=== PATIENT | female | born 1975 | race Caucasian/White ===

== ENCOUNTER 2024-07-10 14:55 | Inpatient (IN) | payer BC, OTHER ==
[2024-07-10 15:21] LABS: HEMATOCRIT 44.1 % (37.0-47.0); HEMOGLOBIN 14.3 g/dL (12.0-16.0); MEAN CORPUSCULAR HEMOGLOBIN 31.4 pg (27.0-34.0); MEAN CORPUSCULAR HGB CONC 32.4 g/dL (33.0-35.0); MEAN CORPUSCULAR VOLUME 96.7 fL (80-100); PLATELET COUNT,PLT 418 10^3/uL (150-450); RED BLOOD CELL COUNT 4.56 10^6/uL (4.2-5.4); WHITE BLOOD CELL COUNT,WBC 12.2 10^3/uL (5.0-10.0)
[2024-07-10 15:24] LABS: BASOPHILS PERCENT AUTO 0.3 % (0.0-1.0); EOSINOPHILS PERCENT AUTO 0.2 % (1.0-3.0); LYMPHOCYTES PERCENT AUTO 11.9 % (20.5-50.1); MONOCYTES PERCENT AUTO 5.6 % (2-8)
[2024-07-10] MEDS: Lactated Ringers 1,000 ML IV SCH ×2 (15:28→16:51)
[2024-07-10] MEDS: cefTRIAXone 2 GM Vial IV ONE (15:28)
[2024-07-10] MEDS: Azithromycin 500 MG in Sodium Chloride 0.9% 250 ML IV ONE (15:28)
[2024-07-10 15:35] LABS: A/G RATIO 0.56; ALBUMIN 2.9 g/dL (3.4-5.0); ANION GAP 15.1 mEq/L (7-13); BILIRUBIN TOTAL 0.7 mg/dL (0.2-1.0); BUN/CREATININE RATIO 21.3 (No establ ref range); CALCIUM 9.6 mg/dL (8.5-10.1); CREATININE 0.89 mg/dL (0.55-1.02); EST CRCL DRUG DOSING (CG) 66.03 mL/min; POTASSIUM,K 3.1 mmol/L (3.5-5.1); PROTEIN TOTAL,TP 8.1 g/dL (6.4-8.2)
[2024-07-10 15:38] LABS: LACTIC ACID 2.3 mmol/L (0.4-2.0)
[2024-07-10] MEDS: Albuterol/Ipratropium 3.0-0.5 MG/3 ML Neb Soln NEB ONE ×2 (15:43→16:53)
[2024-07-10 15:45] LABS: BAND PERCENT MAN 7 %; LYMPHOCYTES PERCENT MAN 16 % (20-50); MONOCYTES PERCENT MAN 3 % (2-8); SEG NEUTROPHILS PERCENT MAN 74 % (42-75)
[2024-07-10 16:43] LABS: APPEARANCE,URINE SLIGHTLY CLOUDY (CLEAR); BILIRUBIN,URINE SMALL (NEGATIVE); COLOR,URINE YELLOW (YELLOW); GLUCOSE,URINE NEGATIVE (NEGATIVE); KETONES,URINE TRACE (NEGATIVE); LEUKOCYTE ESTERASE,URINE NEGATIVE (NEGATIVE); NITRITE,URINE NEGATIVE (NEGATIVE); OCCULT BLOOD,URINE TRACE-INTACT (NEGATIVE); PROTEIN,URINE >=300 (NEGATIVE)
[2024-07-10] MEDS: methylPREDNISolone Sodium Succinate 40 MG/1 ML SDV IVPUSH ONE (16:53)
[2024-07-10 17:00] LABS: BACTERIA,URINE MODERATE /HPF (0-FEW/HPF); EPITHELIAL CELLS,URINE MODERATE /HPF (NOT SEEN); MUCUS,URINE MODERATE /LPF (NOT SEEN); WBC,URINE 0-5 /HPF (0-5/HPF)
[2024-07-10] MEDS ORDERED: Albuterol 0.083% 2.5 MG/3 ML Neb Soln NEB PRN (17:32)
[2024-07-10] MEDS ORDERED: Acetaminophen/HYDROcodone 325-5 MG Tab PO PRN (17:32)
[2024-07-10] MEDS ORDERED: Albuterol/Ipratropium 3.0-0.5 MG/3 ML Neb Soln NEB PRN (17:32)
[2024-07-10] MEDS ORDERED: Bisacodyl 5 MG Tab PO PRN (17:32)
[2024-07-10] MEDS ORDERED: Docusate Sodium 100 MG Cap PO PRN (17:32)
[2024-07-10] MEDS ORDERED: 50% Dextrose in Water 50 ML Syringe IVPUSH PRN (17:39)
[2024-07-10] MEDS ORDERED: Glucagon,Human Recombinant 1 MG Vial IM PRN (17:39)
[2024-07-10] MEDS ORDERED: cefTRIAXone 2 GM Vial IVPUSH SCH (17:45)
[2024-07-10] MEDS: Budesonide 0.5 MG/2 ML Neb Susp NEB SCH (19:44)
[2024-07-10] MEDS: Potassium Chloride 10 MEQ Tab.ER PO ONE (19:44)
[2024-07-10] MEDS: Insulin Lispro 100 Units/ML 3 ML Vial SUBCUT SCH (20:35)
[2024-07-10] MEDS: methylPREDNISolone Sodium Succinate 40 MG/1 ML SDV IVPUSH SCH (20:35)
[2024-07-10] MEDS: Albuterol/Ipratropium 3.0-0.5 MG/3 ML Neb Soln NEB SCH (23:04)
[2024-07-11 06:17] LABS: BASOPHILS PERCENT AUTO 0.1 % (0.0-1.0); HEMATOCRIT 37.3 % (37.0-47.0); HEMOGLOBIN 12.2 g/dL (12.0-16.0); LYMPHOCYTES PERCENT AUTO 10.4 % (20.5-50.1); MEAN CORPUSCULAR HEMOGLOBIN 32.2 pg (27.0-34.0); MEAN CORPUSCULAR HGB CONC 32.7 g/dL (33.0-35.0); MEAN CORPUSCULAR VOLUME 98.4 fL (80-100); MONOCYTES PERCENT AUTO 3.1 % (2-8); NEUTROPHILS PERCENT AUTO 86.4 % (42.2-75.2); PLATELET COUNT,PLT 476 10^3/uL (150-450); RED BLOOD CELL COUNT 3.79 10^6/uL (4.2-5.4); WHITE BLOOD CELL COUNT,WBC 14.2 10^3/uL (5.0-10.0)
[2024-07-11 06:39] LABS: ANION GAP 12.1 mEq/L (7-13); CALCIUM 9.1 mg/dL (8.5-10.1); CREATININE 0.62 mg/dL (0.55-1.02); EST CRCL DRUG DOSING (CG) 94.78 mL/min; POTASSIUM,K 4.1 mmol/L (3.5-5.1)
[2024-07-11] MEDS: Enoxaparin 40 MG/0.4 ML Syringe SUBCUT SCH (09:20)
[2024-07-11] MEDS: Azithromycin 500 MG in Sodium Chloride 0.9% 250 ML IV SCH (09:21)
[2024-07-11] MEDS: cefTRIAXone 2 GM Vial IVPUSH SCH (09:21)
[2024-07-12 06:43] LABS: HEMATOCRIT 36.6 % (37.0-47.0); HEMOGLOBIN 11.3 g/dL (12.0-16.0); MEAN CORPUSCULAR HEMOGLOBIN 31.2 pg (27.0-34.0); MEAN CORPUSCULAR HGB CONC 30.9 g/dL (33.0-35.0); MEAN CORPUSCULAR VOLUME 101.1 fL (80-100); PLATELET COUNT,PLT 540 10^3/uL (150-450); RED BLOOD CELL COUNT 3.62 10^6/uL (4.2-5.4); WHITE BLOOD CELL COUNT,WBC 18.5 10^3/uL (5.0-10.0)
[2024-07-12 06:45] LABS: EOSINOPHILS PERCENT AUTO 0.1 % (1.0-3.0); LYMPHOCYTES PERCENT AUTO 21.7 % (20.5-50.1); MONOCYTES PERCENT AUTO 4.3 % (2-8); NEUTROPHILS PERCENT AUTO 73.9 % (42.2-75.2)
[2024-07-12 06:57] LABS: ANION GAP 15.7 mEq/L (7-13); CALCIUM 9.5 mg/dL (8.5-10.1); CREATININE 0.73 mg/dL (0.55-1.02); EST CRCL DRUG DOSING (CG) 80.5 mL/min; POTASSIUM,K 3.7 mmol/L (3.5-5.1)
[2024-07-12 07:03] LABS: LYMPHOCYTES PERCENT MAN 20 % (20-50); MONOCYTES PERCENT MAN 5 % (2-8); SEG NEUTROPHILS PERCENT MAN 75 % (42-75)
[2024-07-12 09:35] LABS: HEMOGLOBIN A1C 7.7 % (<5.7)
[2024-07-12] MEDS: predniSONE 20 MG Tab PO SCH (09:49)
[2024-07-12] MEDS: metFORMIN 500 MG Tab PO SCH (13:46)
[2024-07-12] MEDS: Levothyroxine 100 MCG Tab PO SCH (13:47)
[2024-07-12] MEDS ORDERED: CETIRIZINE HCL 10 MG PO PRN (15:39)
[2024-07-12] MEDS: Simvastatin 40 MG Tab PO SCH (21:21)
[2024-07-12] MEDS: Acetaminophen 325 MG Tab PO PRN (21:29)
[2024-07-13 07:01] LABS: HEMATOCRIT 35.9 % (37.0-47.0); HEMOGLOBIN 11.3 g/dL (12.0-16.0); MEAN CORPUSCULAR HGB CONC 31.5 g/dL (33.0-35.0); MEAN CORPUSCULAR VOLUME 101.7 fL (80-100); PLATELET COUNT,PLT 535 10^3/uL (150-450); RED BLOOD CELL COUNT 3.53 10^6/uL (4.2-5.4); WHITE BLOOD CELL COUNT,WBC 17.8 10^3/uL (5.0-10.0)
[2024-07-13 07:04] LABS: BASOPHILS PERCENT AUTO 0.1 % (0.0-1.0); EOSINOPHILS PERCENT AUTO 0.1 % (1.0-3.0); LYMPHOCYTES PERCENT AUTO 25.3 % (20.5-50.1); MONOCYTES PERCENT AUTO 5.8 % (2-8); NEUTROPHILS PERCENT AUTO 68.7 % (42.2-75.2)
[2024-07-13 07:09] LABS: CALCIUM 8.9 mg/dL (8.5-10.1); CREATININE 0.71 mg/dL (0.55-1.02); EST CRCL DRUG DOSING (CG) 82.77 mL/min
[2024-07-13 07:41] LABS: BAND PERCENT MAN 3 %; LYMPHOCYTES % ATYPICAL MANUAL 2 %; LYMPHOCYTES PERCENT MAN 25 % (20-50); MONOCYTES PERCENT MAN 5 % (2-8); SEG NEUTROPHILS PERCENT MAN 65 % (42-75)
[2024-07-13] MEDS: Sodium Chloride 0.9% 10 ML Syringe FLUSH PRN (08:02)
[2024-07-13] MEDS: FLUoxetine 10 MG Cap PO SCH (08:06)
[2024-07-13] MEDS: Potassium Chloride 10 MEQ Tab.ER PO SCH (08:09)
[2024-07-13] MEDS: Ondansetron 4 MG/2 ML SDV IVPUSH PRN (10:14)
[2024-07-14 06:56] LABS: BASOPHILS PERCENT AUTO 0.1 % (0.0-1.0); EOSINOPHILS PERCENT AUTO 0.2 % (1.0-3.0); HEMATOCRIT 36.7 % (37.0-47.0); HEMOGLOBIN 11.3 g/dL (12.0-16.0); LYMPHOCYTES PERCENT AUTO 27.8 % (20.5-50.1); MEAN CORPUSCULAR HEMOGLOBIN 31.6 pg (27.0-34.0); MEAN CORPUSCULAR HGB CONC 30.8 g/dL (33.0-35.0); MEAN CORPUSCULAR VOLUME 102.5 fL (80-100); MONOCYTES PERCENT AUTO 5.9 % (2-8); PLATELET COUNT,PLT 504 10^3/uL (150-450); RED BLOOD CELL COUNT 3.58 10^6/uL (4.2-5.4); WHITE BLOOD CELL COUNT,WBC 13.1 10^3/uL (5.0-10.0)
[2024-07-14 07:14] LABS: ANION GAP 8.8 mEq/L (7-13); CALCIUM 8.9 mg/dL (8.5-10.1); CREATININE 0.69 mg/dL (0.55-1.02); EST CRCL DRUG DOSING (CG) 85.17 mL/min; POTASSIUM,K 3.8 mmol/L (3.5-5.1)
[2024-07-14] MEDS: Melatonin 3 MG Tab PO PRN (20:37)
[2024-07-15 06:59] LABS: HEMATOCRIT 37.3 % (37.0-47.0); HEMOGLOBIN 11.7 g/dL (12.0-16.0); MEAN CORPUSCULAR HGB CONC 31.4 g/dL (33.0-35.0); MEAN CORPUSCULAR VOLUME 101.9 fL (80-100); PLATELET COUNT,PLT 487 10^3/uL (150-450); RED BLOOD CELL COUNT 3.66 10^6/uL (4.2-5.4); WHITE BLOOD CELL COUNT,WBC 13.3 10^3/uL (5.0-10.0)
[2024-07-15 07:03] LABS: BASOPHILS PERCENT AUTO 0.2 % (0.0-1.0); EOSINOPHILS PERCENT AUTO 0.8 % (1.0-3.0); LYMPHOCYTES PERCENT AUTO 33.5 % (20.5-50.1); MONOCYTES PERCENT AUTO 6.9 % (2-8); NEUTROPHILS PERCENT AUTO 58.6 % (42.2-75.2)
[2024-07-15 07:14] LABS: ANION GAP 11.3 mEq/L (7-13); CALCIUM 8.8 mg/dL (8.5-10.1); CREATININE 0.69 mg/dL (0.55-1.02); EST CRCL DRUG DOSING (CG) 85.17 mL/min; POTASSIUM,K 4.3 mmol/L (3.5-5.1)
[2024-07-15 07:42] LABS: LYMPHOCYTES PERCENT MAN 35 % (20-50); MONOCYTES PERCENT MAN 6 % (2-8); SEG NEUTROPHILS PERCENT MAN 59 % (42-75)
[2024-07-16 06:57] LABS: BASOPHILS PERCENT AUTO 0.2 % (0.0-1.0); EOSINOPHILS PERCENT AUTO 0.7 % (1.0-3.0); HEMATOCRIT 39.4 % (37.0-47.0); HEMOGLOBIN 12.4 g/dL (12.0-16.0); LYMPHOCYTES PERCENT AUTO 33.1 % (20.5-50.1); MEAN CORPUSCULAR HEMOGLOBIN 31.7 pg (27.0-34.0); MEAN CORPUSCULAR HGB CONC 31.5 g/dL (33.0-35.0); MEAN CORPUSCULAR VOLUME 100.8 fL (80-100); MONOCYTES PERCENT AUTO 6.8 % (2-8); NEUTROPHILS PERCENT AUTO 59.2 % (42.2-75.2); PLATELET COUNT,PLT 491 10^3/uL (150-450); RED BLOOD CELL COUNT 3.91 10^6/uL (4.2-5.4); WHITE BLOOD CELL COUNT,WBC 12.1 10^3/uL (5.0-10.0)
[2024-07-16 07:20] LABS: ANION GAP 12.8 mEq/L (7-13); CALCIUM 9.1 mg/dL (8.5-10.1); CREATININE 0.73 mg/dL (0.55-1.02); EST CRCL DRUG DOSING (CG) 80.5 mL/min; POTASSIUM,K 3.8 mmol/L (3.5-5.1)
[2024-07-17 06:47] LABS: HEMATOCRIT 42.5 % (37.0-47.0); HEMOGLOBIN 13.2 g/dL (12.0-16.0); MEAN CORPUSCULAR HEMOGLOBIN 31.4 pg (27.0-34.0); MEAN CORPUSCULAR HGB CONC 31.1 g/dL (33.0-35.0); PLATELET COUNT,PLT 515 10^3/uL (150-450); RED BLOOD CELL COUNT 4.21 10^6/uL (4.2-5.4); WHITE BLOOD CELL COUNT,WBC 12.5 10^3/uL (5.0-10.0)
[2024-07-17 07:04] LABS: BASOPHILS PERCENT AUTO 0.2 % (0.0-1.0); EOSINOPHILS PERCENT AUTO 0.6 % (1.0-3.0); LYMPHOCYTES PERCENT AUTO 28.9 % (20.5-50.1); MONOCYTES PERCENT AUTO 8.3 % (2-8)
[2024-07-17 07:06] LABS: ANION GAP 11.3 mEq/L (7-13); CALCIUM 9.5 mg/dL (8.5-10.1); CREATININE 0.77 mg/dL (0.55-1.02); EST CRCL DRUG DOSING (CG) 76.32 mL/min; POTASSIUM,K 4.3 mmol/L (3.5-5.1)
[2024-07-17 07:40] LABS: BAND PERCENT MAN 1 %; EOSINOPHILS PERCENT MAN 1 % (1-3); LYMPHOCYTES PERCENT MAN 33 % (20-50); MONOCYTES PERCENT MAN 9 % (2-8); SEG NEUTROPHILS PERCENT MAN 56 % (42-75)
[2024-07-17] MEDS: guaiFENesin 600 MG Tab.ER PO SCH (10:50)
== END 2024-07-17 16:30 | disposition home or self-care (01) | DRG 720 ==
LOC: DL.ED 14:55 → DL.MS 16:50
PROVIDERS: ADMIT Internal Medicine; ATTEND Internal Medicine
PROC: 5A0955A Assistance with Respiratory Ventilation, Greater than 96 Consecutive Hours, High Flow/Velocity Cannula (ICD-10-PCS; principal; 2024-07-10)
PROC: 3E03329 Introduction of Other Anti-infective into Peripheral Vein, Percutaneous Approach (ICD-10-PCS; principal; 2024-07-10)
DX: A41.9 Sepsis, unspecified organism (principal); R65.20 Severe sepsis without septic shock; H54.7 Unspecified visual loss; E03.9 Hypothyroidism, unspecified; E87.20 Acidosis, unspecified; J15.9 Unspecified bacterial pneumonia; J96.01 Acute respiratory failure with hypoxia; E66.9 Obesity, unspecified; E11.9 Type 2 diabetes mellitus without complications; Z68.39 Body mass index [BMI] 39.0-39.9, adult; Z88.8 Allergy status to other drugs, medicaments and biological substances
CPT/HCPCS: 36415; 71045; 71046; 80048; 80053; 81001; 82947; 83036; 83605; 85025; 87040; 87428-QW; 94618; 94640; 96365; 96368; 97161-GP; 99223; 99232; 99233; 99239; 99284; 99285-25; A9270-GY; J0456; J0696; J1650; J1815-GY; J2405; J2919; J3490; J7050; J7120; J7512; J7620-GY